=== PATIENT | male | born 1980 | race Hispanic/Latino ===

== ENCOUNTER 2018-05-01 22:58 | Emergency (ER) | payer OTHER ==
[2018-05-01] MEDS ORDERED: Sodium Chloride 0.9% 1,000 ML ONE (23:21)
[2018-05-01] MEDS ORDERED: Sodium Chloride 0.9% 1,000 ML IV ONE (23:22)
[2018-05-02 00:10] LABS: HEMOGLOBIN 18.3 g/dL (12.0-18.0); MEAN CELL VOLUME 91.8 fL (80.0-94.0); MEAN CORPUSCULAR HEMOGLOBIN 31.1 pg (27.0-31.0); MEAN CORPUSCULAR HGB CONC 33.9 g/dL (33.0-37.0); MEAN PLATELET VOLUME 8.7 fL (7.2-11.7); RBC 5.87 Mil/uL (4.40-5.90); RED CELL DISTRIBUTION WIDTH 13.1 % (11.5-14.5); WHITE BLOOD COUNT 19.3 K/uL (4.8-10.8)
--- NOTE | 2018-05-02 00:16 | C.PDOC ---
History Of Present Illness Patient reports vomiting, diarrhea, and abdominal pain since around 1700 today. Multiple family members have had the same illness. Denies fever. No recent travel or antibiotic use. No medical history. Time Seen by Provider: 05/01/18 23:29 Chief Complaint (Nursing): Abdominal Pain History Per: Patient, Family Past Medical History Reviewed: Historical Data, Nursing Documentation, Vital Signs Vital Signs: Last Vital Signs Temp 98.0 F 05/01/18 23:22 Pulse 90 05/01/18 23:06 Resp 16 05/01/18 23:06 BP 123/73 05/01/18 23:22 Pulse Ox 99 05/01/18 23:06 - Medical History PMH: No Chronic Diseases Surgical History: No Surg Hx Family History: States: Unknown Family Hx - Social History Hx Alcohol Use: No Hx Substance Use: No Review Of Systems Except As Marked, All Systems Reviewed And Found Negative. Constitutional: Negative for: Fever, Chills Cardiovascular: Negative for: Chest Pain Respiratory: Negative for: Cough, Shortness of Breath Gastrointestinal: Positive for: Nausea, Vomiting, Abdominal Pain, Diarrhea Genitourinary: Negative for: Dysuria Skin: Negative for: Rash Neurological: Negative for: Altered Mental Status Physical Exam - Physical Exam Appears: In Acute Distress (actively vomiting) Skin: Normal Color, Warm, Dry Eye(s): bilateral: Normal Inspection Oral Mucosa: Moist Chest: Symmetrical Cardiovascular: Rhythm Regular Respiratory: Normal Breath Sounds Gastrointestinal/Abdominal: Tenderness (mild diffuse) Neurological/Psych: Oriented x3, Normal Speech ED Course And Treatment - Laboratory Results Result Diagrams: 05/02/18 00:07 05/02/18 00:07 O2 Sat by Pulse Oximetry: 99 Medical Decision Making Medical Decision Making: Labs done. Leukocytosis noted, patient with likely viral gastroenteritis given multiple sick contacts. Hydrated with 2L NS bolus. Zofran ivp given. Patient stopped vomiting in the ED and slept comfortably. On re-eval he is asking to be discharged as he feels much better. Rx for Zofran provided. Advised to return to the ED for any new or worsening symptoms. Otherwise follow up with PMD as needed. Disposition - Disposition Disposition: HOME/ ROUTINE Disposition Time: 02:26 Condition: STABLE Additional Instructions: JIN WATERMAN, thank you for letting us take care of you today. Your provider was Homa Peguero MD and you were treated for STOMACH PAINS/DEHYDRATED. The emergency medical care you received today was directed at your acute symptoms. If you were prescribed any medication, please fill it and take as directed. It may take several days for your symptoms to resolve. Return to the Emergency Department if your symptoms worsen, do not improve, or if you have any other problems. Please contact your doctor or call one of the physicians/clinics you have been referred to that are listed on the Patient Visit Information form that is included in your discharge packet. Bring any paperwork you were given at discharge with you along with any medications you are taking to your follow up visit. Our treatment cannot replace ongoing medical care by a primary care provider outside of the emergency department. Thank you for allowing the [facility] team to be part of your care today. If you had an X-Ray or CT scan: A Radiologist will review the ED reading if any change in treatment is needed we will contact you. If you had a blood, urine, or wound culture: It will take several days for the results, if any change in treatment is needed we will contact you. If you had an STI test: It will take 48 hours for the results. Please call after 1 week if you have not heard back. Prescriptions: Ondansetron ODT [Zofran ODT] 4 mg PO TID PRN #9 odt PRN Reason: Nausea/Vomiting Instructions: Viral Gastroenteritis, Adult (DC) Forms: [facility] ([place]) - Clinical Impression Clinical Impression: Gastroenteritis
[2018-05-02 00:29] LABS: ALB/GLOB RATIO 1.4 (1.0-2.1); ALBUMIN 5.3 g/dL (3.5-5.0); ALT/SGPT 41 U/L (21-72); AST/SGOT 73 U/L (17-59); BLOOD UREA NITROGEN 25 mg/dL (9-20); GFR NON-AFRICAN AMERICAN > 60
[2018-05-02] MEDS ORDERED: Sodium Chloride 0.9% 1,000 ML IV ONE (01:32)
[2018-05-02 01:34] VITALS: BP 105/78; PULSE 73; RESP 18; TEMP 98.4
[2018-05-02 02:27] VITALS: O2SAT 99
== END 2018-05-02 02:30 | disposition home or self-care (01) ==
LOC: C.ER 22:58
DX: K52.9 Noninfective gastroenteritis and colitis, unspecified (principal)
CPT/HCPCS: 80053; 82948; 85027; 96360; 96361; 96374; 99285; J2405; J7030